=== PATIENT | female | born 1985 | race Caucasian/White ===

== ENCOUNTER 2023-09-16 09:33 | Emergency (ER) | payer BC, OTHER ==
[~2023-09-16] VITALS: Ht 157.5 cm; Wt 81.0 kg
[2023-09-16 10:22] VITALS: BP 117/66; PULSE 96; RESP 18; TEMP 97.3; O2SAT 98
[2023-09-16 10:54] LABS: COVID19 ANTIGEN SOFIA FIA NEGATIVE (NEGATIVE)
[2023-09-16 10:55] LABS: Rapid Influenza A Negative (Negative); Rapid Influenza B Negative (Negative)
[2023-09-16] MEDS ORDERED: ACET500T58 PO (11:06)
[2023-09-16] MEDS ORDERED: LORA10CA PO (11:06)
[2023-09-16] MEDS ORDERED: BENZ100C97 PO (11:06)
== END 2023-09-16 11:24 | disposition home or self-care (01) ==
LOC: ER 09:33
DX: J39.8 Other specified diseases of upper respiratory tract (principal); Z20.822 Contact with and (suspected) exposure to COVID-19
CPT/HCPCS: 36415; 71045; 87426; 87804